=== PATIENT | male | born 1980 | race Caucasian/White ===

== ENCOUNTER 2018-02-20 15:52 | Emergency (ER) | payer MEDICAID ==
[~2018-02-20] VITALS: Ht 172.7 cm; Wt 70.5 kg
[2018-02-20 15:58] VITALS: Ht 172.7 cm; Wt 70.5 kg
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
[2018-02-20] MEDS ORDERED: IBUP-1561 PO (18:21)
[2018-02-20 18:42] VITALS: BP 135/77; PULSE 55; RESP 20
== END 2018-02-20 18:44 | disposition home or self-care (01) ==
LOC: FTE 15:52
DX: S93.601A Unspecified sprain of right foot, initial encounter (principal); V49.40XA Driver injured in collision with unspecified motor vehicles in traffic accident, initial encounter
CPT/HCPCS: 73630; Z7502